=== PATIENT | female | born 1980 | race Caucasian/White ===

== ENCOUNTER 2017-10-31 14:19 | Observation (INO) | payer OTHER ==
[2017-10-31] MEDS ORDERED: PROMETHAZINE HCL 25 MG/ML INJ IVP ONE (14:37)
[2017-10-31] MEDS ORDERED: fentaNYL 100 MCG/2 ML INJ IVP ONE ×2 (14:37→15:50)
[2017-10-31] MEDS ORDERED: NS 1,000 ML IV ONE ×2 (14:37→15:49)
[2017-10-31] MEDS ORDERED: PANTOPRAZOLE SODIUM 40 MG VIAL IVP ONE (14:50)
[2017-10-31] MEDS ORDERED: HYOSCYAMINE SULFATE 0.125 MG TAB PO ONE (15:12)
[2017-10-31 15:19] LABS: PLATELET COUNT 210 10^3/uL (150-400)
[2017-10-31] MEDS ORDERED: HYOSCYAMINE SULFATE 0.125 MG TAB ONE (15:19)
[2017-10-31] MEDS ORDERED: LORazepam 2 MG/ML INJ IVP ONE (15:26)
--- NOTE | 2017-10-31 16:06 | EDPHY ---
General Time Seen by Provider: 10/31/17 14:36 Narrative: CHIEF COMPLAINT: Abdominal pain, vomiting, diarrhea HISTORY OF PRESENT ILLNESS: Abdominal pain, nausea, vomiting, diarrhea. Patient presents with spouse at bedside. They report that she has had abdominal pain, diarrhea and vomiting. The diarrhea started 10-12 days ago. The vomiting started this morning. [place] returning yesterday. Seven days into her trip she developed diarrhea and some epigastric discomfort. It has been mild at 1st. This morning she woke with severe epigastric abdominal pain and cramping as well as vomiting. She has had persistent diarrhea. No bloody stools or emesis. Subjective fever. No position of comfort. No trauma or injury. History of Effie but no recent abdominal surgeries. No other associated complaints or modifying factors. REVIEW OF SYSTEMS: Ten systems reviewed and are negative unless otherwise noted in the HPI PCP: Dr. Agarwal, [facility] medicine SPECIALISTS: Neurologist, paint technician, orthopedist PAST MEDICAL HISTORY: Orthopedic injuries, neuropathy, chronic abdominal pain, Gilbert's Syndrome, Paloma's, PAST SURGICAL HISTORY: Appendectomy, orthopedic surgery SOCIAL HISTORY: Nonsmoker. Lives here independently with her spouse. Recent travel to [facility] FAMILY HISTORY: Noncontributory EXAMINATION General Appearance: Alert, no distress, tearful. Well-developed well-nourished Head: normocephalic, atraumatic Eyes: Pupils equal and round, no conjunctival pallor or injection ENT, Mouth: Mucous membranes moist. Neck: Normal inspection, supple, non-tender Respiratory: Lungs are clear to auscultation. No wheeze, rhonchi or crackles Cardiovascular: Regular rate and rhythm. No murmur Gastrointestinal: Abdomen is soft and nondistended. Pain out of proportion to examination epigastrium periumbilical region. No tympany. No rigidity. No CVA tenderness. No guarding. Back: non-tender, no bony abnormalities Neurological: A&O, nonfocal, normal gait Skin: Warm and dry, no rash no petechiae or purpura Extremities: Nontender, no pedal edema Psychiatric: Mood and affect normal DIFFERENTIAL DIAGNOSES: Including but not limited to gastritis, gastroenteritis, enteritis, colitis, diverticulitis, pancreatitis, cholecystitis, cholelithiasis MDM: 2:35 p.m. Abdominal pain with vomiting diarrhea for the past 10 days. Nonbloody emesis. She has stable vital signs and does not meet any SIRS criteria. She does not appear toxic but dawn appear to be in discomfort. I have ordered multiple medications for this and will re-evaluate. 3:15 p.m. Notified by RN that the patient will require more medication. I verbalized further medication. 4:00 p.m. Patient re-evaluated. Mild improvement in her symptoms but still has pain out of proportion to examination. I do feel she warrants imaging at this time. 4:15 p.m. Case discussed with Dr. Carvajal. He is in agreement that the patient warrants CT scan of the abdomen pelvis due to her tract able pain at this time. I had initially ordered a ultrasound of the gallbladder but we agree that the CT scan is more appropriate 5:[address] Riley. CT scan of the abdomen pelvis reveals evidence of enteritis with no abscess, perforation or other acute finding. There is incidental note of a lytic lesion on the left sacral wing. I discussed with the patient and this is not new to her. She has been seen elsewhere for this with no documentation here. At this time she still has no improvement of her symptoms. She is intractable pain with vomiting. I do not feel she is stable for discharge home I will discuss with hospitalist for admission. 5:40 p.m. Case discussed with hospitalist Dr. Higgins. She will admit the patient to her service. She is admitted stable condition. GI pathogen panel is pending at this time she remains on contact precautions for this. SUPERVISION: Patient was independently examined, but I discussed the case with my secondary supervising physician Dr. Carvajal - History Smoking Status: Never smoked - Objective Vital Signs: Initial Vital Signs Temperature (C) 99.0 F 10/31/17 14:22 Heart Rate 102 H 10/31/17 14:22 Respiratory Rate 14 10/31/17 14:22 Blood Pressure 120/105 H 10/31/17 14:22 O2 Sat (%) 96 10/31/17 14:22 O2 Delivery Mode Room Air Allergies/Adverse Reactions: lactose Allergy (Severe, Verified 02/25/16 00:24) Swelling/neck,face,throat Sulfa (Sulfonamide Antibiotics) Allergy (Unknown, Verified 02/25/16 00:24) Unknown adhesive Allergy (Verified 02/25/16 00:24) Rash gabapentin Allergy (Verified 02/25/16 00:24) Edema of Extremities hydromorphone HCl [From Dilaudid] Allergy (Verified 02/25/16 00:24) Itching Penicillins Allergy (Verified 02/25/16 00:24) Swelling/neck,face,throat soybean Allergy (Verified 02/25/16 00:24) Itching Home Medications: Medication Instructions Recorded DULoxetine [Cymbalta 30 MG (*)] 30 mg PO HS 10/31/17 Levothyroxine [Synthroid 50 mcg 50 mcg PO MOTUTHFRSA@0600 10/31/17 (*)] Levothyroxine [Synthroid 50 mcg 100 mcg PO SUWE@0600 10/31/17 (*)] Tizanidine HCl 4 mg PO HS 10/31/17 oxyCODONE IR [Oxycodone Ir (*)] 5 - 10 mg PO Q8 10/31/17 Laboratory Results: Laboratory Results 10/31/17 15:14 10/31/17 15:14 Microbiology Results: MICROBIOLOGY 10/31/17 14:56 Stool Gastrointestinal Tract Panel (PCR) - Final No Organism Detected Medications Given: Duloxetine HCl (Cymbalta) 30 mg PO HS [facility] Stop: 04/29/18 20:59 Last Admin: 10/31/17 21:50 Dose: 30 mg Sodium Chloride (Ns) 1,000 mls @ 100 mls/hr IV CONT MEG Stop: 04/29/18 19:59 Last Admin: 11/01/17 06:17 Dose: 1,000 mls Levothyroxine Sodium (Synthroid) 100 mcg PO SUWE@0600 MEG Stop: 04/30/18 05:59 Last Admin: 11/01/17 03:53 Dose: Not Given Miscellaneous Medication (Tizanidine Hcl [Tizanidine Hcl]) 4 mg PO HS [facility] Stop: 04/29/18 20:59 Last Admin: 10/31/17 22:44 Dose: 2 cap Morphine Sulfate (Morphine) 1 - 2 mg IVP Q1HR PRN PRN Reason: Pain, Severe Unable to Take PO Stop: 11/10/17 18:55 Last Admin: 11/01/17 06:16 Dose: 2 mg Ondansetron HCl (Zofran) 4 mg IVP Q4 PRN PRN Reason: Nausea/Vomiting, Can't Take PO Stop: 04/29/18 18:54 Last Admin: 10/31/17 19:39 Dose: 4 mg Discontinued Medications Fentanyl (Sublimaze) 50 mcg IVP EDNOW ONE Stop: 10/31/17 14:38 Last Admin: 10/31/17 14:47 Dose: 50 mcg Fentanyl (Sublimaze) 50 mcg IVP EDNOW ONE Stop: 10/31/17 15:51 Last Admin: 10/31/17 15:56 Dose: 50 mcg Hyoscyamine Sulfate (Levsin, Hyomax-Sl) 0.125 mg PO EDNOW ONE Stop: 10/31/17 15:13 Last Admin: 10/31/17 15:22 Dose: Not Given Sodium Chloride (Ns) 1,000 mls @ 0 mls/hr IV EDNOW ONE; Wide Open PRN Reason: Protocol Stop: 10/31/17 14:38 Last Admin: 10/31/17 14:49 Dose: 1,000 mls Sodium Chloride (Ns) 1,000 mls @ 0 mls/hr IV ONCE ONE PRN Reason: Wide Open Stop: 10/31/17 15:50 Last Admin: 10/31/17 15:52 Dose: 1,000 mls Lorazepam (Ativan Injection) 1 mg IVP EDNOW ONE Stop: 10/31/17 15:27 Last Admin: 10/31/17 15:45 Dose: 1 mg Pantoprazole Sodium (Protonix) 40 mg IVP EDNOW ONE Stop: 10/31/17 14:51 Last Admin: 10/31/17 15:45 Dose: 40 mg Promethazine HCl (Phenergan) 12.5 mg IVP EDNOW ONE Stop: 10/31/17 14:38 Last Admin: 10/31/17 14:46 Dose: 12.5 mg Departure - Departure Disposition: [facility] Clinical Impression: Gastroenteritis, Intractable abdominal pain Condition: Good
[2017-10-31] MEDS ORDERED: IOPAMIDOL (ISOVUE-300) 100 ML BTL ONE (16:22)
[2017-10-31 17:22] LABS: HEPATITIS B SURFACE ANTIGEN NEGATIVE (NEGATIVE)
[2017-10-31 17:28] LABS: HEPATITIS A ANTIBODY IGM (BCH) NEGATIVE (NEGATIVE); HEPATITIS B CORE AB IGM NEGATIVE (NEGATIVE)
[2017-10-31 17:40] LABS: HEPATITIS C ANTIBODY TOTAL NEGATIVE (NEGATIVE)
[2017-10-31] MEDS ORDERED: ONDANSETRON 4 MG/2 ML VIAL IVP PRN (18:55)
[2017-10-31] MEDS ORDERED: PROMETHAZINE HCL 25 MG/ML INJ IVP PRN (18:55)
[2017-10-31] MEDS ORDERED: ACETAMINOPHEN 325 MG TAB PO PRN (19:57)
[2017-10-31] MEDS ORDERED: KETOROLAC 30 MG/1 ML SDV IVP PRN (19:57)
[2017-10-31] MEDS ORDERED: oxyCODONE IR 5 MG TAB PO PRN (19:57)
--- NOTE | 2017-10-31 20:53 | GHP ---
[f rep st] HISTORY AND PHYSICAL DATE OF ADMISSION: 10/31/2017 CHIEF COMPLAINT: Vomiting, diarrhea. HISTORY: The patient is a 37-year-old female who complains of nausea, vomiting and diarrhea for 2-1/ 2 weeks. She recently traveled to [place] to visit her family. She was sick almost her entire time t here. She was seen in an urgent care in [place]. She arrived home yesterday morning. She has persis tent abdominal pain, mid region. Today, vomiting got so bad that she was diaphoretic and flushing se verely according to her . She has abdominal pain associated with cramping that comes and goes . She denies any fever. There has been no blood in her stool. There are no sick contacts. PAST MEDICAL HISTORY: 1. Chronic neuropathic pain in the left lower chest wall previously requiring steroid injections. 2. Pituitary microadenoma. 3. 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 4. Gilbert's. 5. Lactose intolerance. PAST SURGICAL HISTORY: Appendectomy. MEDICATIONS: Please see computer record for full detailed list. ALLERGIES: Sulfa, penicillin, Dilaudid. SOCIAL HISTORY: No smoking. No alcohol. She lives with her . REVIEW OF SYSTEMS: Complete review of systems obtained. Review of systems negative on constitutiona l, HEENT, GI, pulmonary, cardiovascular, , hematology, skin, musculoskeletal, endocrine, and psychi atric except for positives and negatives noted in HPI. FAMILY HISTORY: Reviewed, noncontributory to presenting complaint. PHYSICAL EXAMINATION: GENERAL: Well-developed, well-nourished female, in no acute distress, althoug h she does look uncomfortable and she is lying very still in bed. VITAL SIGNS: Temp is 37.2, pulse 102, blood pressure 129/87, saturating 96% on room air. EYES: Normal conjunctivae. Pupils equal an d react to light. ENT: Normal ears and nose. Hearing intact. Normal teeth. Oropharynx moist. NE CK: Trachea midline. No thyromegaly. CHEST: Normal respiratory effort. LUNGS: Clear to auscultat ion bilaterally. CARDIOVASCULAR: Regular rhythm. No murmur. No lower extremity edema. ABDOMEN: Soft. Mild mid epigastric tenderness without rebound or guarding. No hepatosplenomegaly. SKIN: Wa rm, dry, intact. No rash. MUSCULOSKELETAL: No cyanosis or clubbing. Strength 5/5 in upper and low er extremities. NEUROLOGIC: Cranial nerves intact. Normal sensation to light touch. PSYCHIATRIC: Alert and oriented x3. Normal affect. Normal judgment. Normal insight. Normal memory. LABORATORY DATA: White count 6.33, hematocrit 40.9, platelets 210. Sodium 140, potassium 3.6, chlor ami 101, bicarb 28, BUN 8, creatinine 0.6, glucose 94, total bilirubin is 1.6. AST 88, ALT is 142. test is negative. CT scan of the abdomen and pelvis shows small bowel thickening consisten t with enteritis. There is also a lucent lesion in the left iliac wing. This case was discussed wit buck Lerma PA-C, in the emergency room regarding emergency room course. She has persistent symp toms so is being admitted to observation. ASSESSMENT/PLAN: 1. Gastroenteritis. There is evidence of small bowel inflammation on her CAT scan but without obstr uction. I query if this may be a prolonged viral course. She will be treated supportively. 2. Increased liver function tests. She has known Gilbert's but now her transaminases are also eleva melquiades. This may be due to hypovolemia and poor perfusion. We will follow. Viral hepatitis panel is n egative. 3. Lucent lesion in the left iliac. Per the patient, this is chronic and unchanged. CODE STATUS: Full. ADMISSION STATUS: Will admit to observation, reevaluate tomorrow regarding ongoing need for hospital ization. DEEP VENOUS THROMBOSIS PROPHYLAXIS: She is moderate risk. Will place her on subcu Lovenox. /[id number]/MODL
[2017-10-31] MEDS ORDERED: DULoxetine 30 MG CAP PO SCH (21:00)
[2017-10-31] MEDS ORDERED: TIZANIDINE HCL 2 MG PO SCH (21:00)
[2017-10-31] MEDS: NS 1,000 ML IV SCH (21:54)
[2017-11-01 04:48] LABS: PLATELET COUNT 194 10^3/uL (150-400)
[2017-11-01] MEDS ORDERED: LEVOTHYROXINE 100 MCG TAB PO SCH (06:00)
[2017-11-01] MEDS: NS 1,000 ML IV SCH (06:17)
[2017-11-01] MEDS ORDERED: ENOXAPARIN 40 MG/0.4 ML SYR SC SCH (09:00)
[2017-11-01] MEDS ORDERED: TIROSINT 50 MCG PO SCH (10:45)
[2017-11-01 12:09] VITALS: BP 109/72
[2017-11-01] MEDS ORDERED: LOPERAMIDE HCL 2 MG CAP PO PRN (12:35)
--- NOTE | 2017-11-01 12:41 | HOSPPROG ---
Hospitalist Progress Note Assessment/Plan: 37 yo F w persistent vomiting and diarrhea enteritis: seen on CT (images reviewed/interpreted by me) benign exam micro notably negative, although may have cleared pathogen will arrange outpt followup w GI dehydration: ,mild and resolved w IVF gastroenteritis w diarrhea: micro neg ok to use imodium pain: continue meds dispo: home today if tolerates po Subjective: 2 episodes diarrhea today. no vomiting. afebrile. case d/w dr allen Objective: Vital Signs Temp Pulse Resp BP Pulse Ox 37.3 C 77 17 109/72 97 11/01/17 12:08 11/01/17 12:08 11/01/17 12:08 11/01/17 12:08 11/01/17 12:08 Laboratory Results 11/01/17 04:38 11/01/17 04:38 10/31/17 11/01/17 11/02/17 05:59 05:59 05:59 Intake Total 2817 Output Total 900 Balance 1917 - Physical Exam Constitutional: no apparent distress, appears nourished Eyes: PERRL, anicteric sclera Ears, Nose, Mouth, Throat: moist mucous membranes, hearing normal Cardiovascular: regular rate and rhythym, no murmur, rub, or gallop Respiratory: no respiratory distress, no rales or rhonchi Gastrointestinal: normoactive bowel sounds, soft, non-tender abdomen, No guarding, No rebound, No distension Genitourinary: no bladder fullness, No vila in urethra Skin: warm, normal color Musculoskeletal: full muscle strength, no muscle tenderness Neurologic: AAOx3 ICD10 Worksheet Patient Problems: Problems Problem Status Onset Weakness generalized Acute Gastroenteritis Acute Intractable abdominal pain Acute
[2017-11-01] MEDS ORDERED: PANTOPRAZOLE SODIUM 40 MG TAB PO SCH (12:45)
--- NOTE | 2017-11-01 16:32 | GDS ---
[f rep st] DISCHARGE SUMMARY DISCHARGE DIAGNOSES: 1. Enteritis with negative microbiology. 2. Nausea/vomiting. 3. Multiple drug allergies. 4. Chronic neuropathic pain. Please see admission history and physical by Dr. Tamela Higgins. Patient presented with nausea and v omiting. Notably, she did not really have much in the way of signs of volume depletion, nor did she have sepsis. She had a benign abdominal exam. CT showed thickening of her small bowel. Microbiolog y was negative. She did not have significant anemia. This could be sequelae of a viral infection or could be inflammatory bowel disease. The patient rece ived supportive care. An appointment was made for her November 14 at [facility] for followup, for consideration of an upper endoscopy with biopsy if symptoms have not resolved. She had modestly ck vated liver function tests with negative hepatitis serology; they were trending toward normal. /[id number]/MODL
[2017-11-02] MEDS ORDERED: TIROSINT 50 MCG PO SCH (06:00)
[2017-11-02] MEDS ORDERED: LEVOTHYROXINE 50 MCG TAB PO SCH (06:00)
== END 2017-11-01 17:19 | disposition home or self-care (01) ==
LOC: EDUNIT# → F1N 18:26
PROVIDERS: ADMIT Internal Medicine; ATTEND Internal Medicine
DX: K52.9 Noninfective gastroenteritis and colitis, unspecified (principal); R11.2 Nausea with vomiting, unspecified; R10.9 Unspecified abdominal pain; E86.9 Volume depletion, unspecified; R94.5 Abnormal results of liver function studies; E80.4 Gilbert syndrome; G89.29 Other chronic pain; M89.9 Disorder of bone, unspecified; E73.9 Lactose intolerance, unspecified; M79.2 Neuralgia and neuritis, unspecified; E03.9 Hypothyroidism, unspecified; Z88.0 Allergy status to penicillin; Z88.2 Allergy status to sulfonamides
CPT/HCPCS: 74177; 96361; 96374; 96375; 96376; 99285; G0378; G0472; J1650; J1885; J2060; J2270; J2405; J2550; J3010; Q9967

== ENCOUNTER 2017-12-14 17:59 | Emergency (ER) | payer OTHER ==
--- NOTE | 2017-12-14 18:08 | EDPHY ---
H & P Stated Complaint: trigger pt inj abd for chronic abd pain/now with gross distention/numbness Time Seen by Provider: 12/14/17 18:07 HPI/ROS: CHIEF COMPLAINT: Abdominal distension following abdominal injections HISTORY OF PRESENT ILLNESS: The patient is a 37 y/o female arriving with her complaining of sudden abdominal distension following abdominal steroid/ anesthetic injections this afternoon around 14:30, about 3.5 hours ago. She has had these injections several times previously for chronic neuropathic pain in her left lower chest, normally with good control of those symptoms. Upon arriving home today she started to notice swelling of the left side of her abdomen where the injections were placed. This seemed to rapidly expand and she says she now feels "like I'm about to pop like a balloon." She contacted the facility that performed the procedure and was told an RN would call her back, but she never received this call and went to urgent care for evaluation. They then referred her directly here. She denies associated nausea or vomiting, dyspnea, or abdominal pain. She has not passed gas or had any bowel movements since symptoms began. She has never experienced these symptoms before. REVIEW OF SYSTEMS: A ten point review of systems was performed and is negative with the exception of the items mentioned in the HPI. Past medical history: 1. Chronic neuropathic pain in left lower chest requiring injections 2. Pituitary microadenoma 3. 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 Gilbert's 5. Lactose intolerance Past surgical history: 1. Appendectomy 2. Ovarian cyst removal 3. Left hip, knee, foot surgeries Prior medical records reviewed including admission 10/31/17 for gastroenteritis. Family history: Noncontributory Social history: Nonsmoker. Lives with , who is at bedside. General Appearance: Alert. Vital signs reviewed. Eyes: Pupils equal and round, no conjunctival injection, no discharge. Anicteric. ENT, Mouth: Mucous membranes are moist, no oropharyngeal erythema or edema. Neck: No lymphadenopathy, supple. Respiratory: Lungs are clear to auscultation; no wheezes, rales, or rhonchi. Cardiovascular: Regular rate and rhythm; no murmur, rub, or gallop. Gastrointestinal: Abdomen is distended, soft and nontender, no palpable masses or organomegaly. Bowel sounds are present. Skin: Warm and dry, no rashes on exposed skin, normal color. Back: Nontender to palpation over the thoracolumbar spine. No CVAT. Extremities: No lower extremity edema, no calf tenderness or swelling. Neurological: Alert and oriented. Moving all four extremities easily and equally. Psychiatric: Normal affect. - Personal History LMP (Females 10-55): IUD In Place Current Tetanus/Diphtheria Vaccine: Unsure Tetanus Vaccine Date: unklnown - Medical/Surgical History Hx Asthma: No Hx Chronic Respiratory Disease: No Hx Diabetes: No Hx Cardiac Disease: No Hx Renal Disease: No Hx Cirrhosis: No Hx Alcoholism: No Hx HIV/AIDS: No Hx Splenectomy or Spleen Trauma: No Other PMH: liver failure ( due to infection), gilberts syndrome. Neuropathy left side . Appy, meningitis as child. Latent tb. Hashimotos. chronic L abd pain- related to neuropathy, l foot surgery - Social History Smoking Status: Never smoked Constitutional: Initial Vital Signs Temperature (C) 36.8 C 12/14/17 18:03 Heart Rate 73 12/14/17 18:03 Respiratory Rate 18 12/14/17 18:03 Blood Pressure 120/88 H 12/14/17 18:03 O2 Sat (%) 97 12/14/17 18:03 O2 Delivery Mode Room Air Allergies/Adverse Reactions: lactose Allergy (Severe, Verified 12/14/17 18:03) Swelling/neck,face,throat Sulfa (Sulfonamide Antibiotics) Allergy (Unknown, Verified 12/14/17 18:03) Unknown adhesive Allergy (Verified 12/14/17 18:03) Rash gabapentin Allergy (Verified 12/14/17 18:03) Edema of Extremities hydromorphone HCl [From Dilaudid] Allergy (Verified 12/14/17 18:03) Itching Penicillins Allergy (Verified 12/14/17 18:03) Swelling/neck,face,throat soybean Allergy (Verified 12/14/17 18:03) Itching Home Medications: Medication Instructions Recorded DULoxetine [Cymbalta 30 MG (*)] 30 mg PO HS 10/31/17 Levothyroxine [Synthroid 50 mcg 50 mcg PO MOTUTHFRSA@0600 10/31/17 (*)] Levothyroxine [Synthroid 50 mcg 100 mcg PO SUWE@0600 10/31/17 (*)] Tizanidine HCl 4 mg PO HS 10/31/17 oxyCODONE IR [Oxycodone Ir (*)] 5 - 10 mg PO Q8 10/31/17 Pantoprazole Sodium [Protonix 40mg 40 mg PO DAILY #20 tab 11/01/17 (*)] Simethicone 125 mg PO PCHS PRN #30 capsule 11/01/17 oxyCODONE IR [Oxycodone Ir (*)] 5 - 10 mg PO Q3HRS PRN tab 11/01/17 Medical Decision Making - Diagnostics Imaging: Discussed imaging studies w/ natural science manager Radiologist, I viewed and interpreted images myself ED Course/Re-evaluation: This is a 37 y/o female with chronic left lower chest neuropathy for which she receives trigger point injections in her LUQ containing a steroid and anesthetic on a regular basis. Within 3.5 hours of these injections today she developed pronounced abdominal distension, worse on the left side. She does not have associated pain, but the injections she received today contained anesthetic that could affect pain sensation. She has not passed gas nor had a bowel movement since the distension began. Limited bedside US performed by myself does not reveal much information. Plan for upright abdominal x-ray initially and possibly abdominal CT. X-ray shows possible constipation. Reassessed patient and discussed findings. Recommended CT for better evaluation, which she agrees to. CT shows significantly distended bladder and constipation. Plan for Rich and enema. She was able to void independently prior to placement of a Rich. She voided at least 1000 mL, according to staff. Reevaluated patient. She has had a successful bowel movement, but continues to be distended. She denies pain, though feels she is still numb. She is comfortable going home and following up with the doctor that performed her injections tomorrow morning. She is given information about constipation. Danger signs reviewed with her. I have not found evidence of bowel obstruction. There is nothing to suggest an infection. Seems that she has constipation, although she states that she has daily bowel movements. She Has not been feeling constipated. She also had some urinary retention that resolved on its own. I am not certain how the injection that she received might have contributed to these problems. The injection is done anteriorly in the left upper abdomen. It should not affect the nerves that supply her bowels or her bladder. Departure - Departure Disposition: Home, Routine, Self-Care Clinical Impression: Abdominal distension Constipation Qualifiers: Constipation type: other constipation type Qualified Code(s): K59.09 - Other constipation Condition: Good Instructions: Additional Information, Constipation (ED) Additional Instructions: Follow up with the doctor that performed your injections first thing tomorrow morning for reevaluation. Return to the ED for any worsening of condition including severe pain, inability to have a bowel movement, inability to urinate , uncontrollable vomiting, blood in stool or vomit, or any other worsening of condition. Referrals: GINNY GUAMAN [Other] - As per Instructions Report Scribed for: Kiana Wei Report Scribed by: Chani Dow Date of Report: 12/14/17 Time of Report: 18:56 Physician Review and Approval Statement: 12/14/17 18:08 Portions of this note were transcribed by the medical claims representative. I, Dr. Kiana Wei, personally performed the history, physical exam, and medical decision- making; and confirmed the accuracy of the information in the transcribed note.
[2017-12-14 23:01] VITALS: BP 113/75
== END 2017-12-14 23:01 | disposition home or self-care (01) ==
DX: K59.09 Other constipation (principal)